=== PATIENT | male | born 1940 | race Caucasian/White ===

== ENCOUNTER 2021-06-18 16:15 | Emergency (ER) | payer MEDICARE ==
[2021-06-18 16:32] VITALS: BP 151/79; PULSE 82
[2021-06-18] MEDS ORDERED: Bacitracin Oint 1 GM U/D Packet TOP ONE (16:47)
--- NOTE | 2021-06-18 16:49 | EDM.PDOC ---
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 Time Seen by Provider: 06/18/21 16:47 Source of Information: Reports: Patient, Family History Limitations: Reports: No Limitations - History of Present Illness INITIAL COMMENTS - FREE TEXT/NARRATIVE: pt caught his rt hand in a plainer Onset: Today, Sudden Duration: Hour(s): Location: Reports: Upper Extremity, Right Associated Symptoms: Reports: No Other Symptoms Right Finger-Ring Pain Score (Numeric/FACES): 5 - Related Data Allergies Allergy/AdvReac Type Severity Reaction Status Date / Time Sulfa (Sulfonamide Allergy Hives Verified 06/18/21 16:34 Antibiotics) Home Meds: Home Meds Albuterol [IMW: Ventolin HFA] 2 puff INH Q4H PRN 04/05/16 [History] Ascorbate Calcium [Vitamin C] 500 mg PO DAILY 04/05/16 [History] Cholecalciferol (Vitamin D3) [Vitamin D3] 1,000 unit PO BID 04/05/16 [History] Cyanocobalamin (Vitamin B-12) [Vitamin B-12] 2,000 mcg PO DAILY 04/05/16 [History] Omeprazole 20 mg PO BID 04/05/16 [History] Prasterone (DHEA) [Dhea] 25 mg PO DAILY 04/05/16 [History] Rivaroxaban [Xarelto] 20 mg PO DAILY 04/05/16 [History] Rosuvastatin [Crestor] 20 mg PO DAILY 04/05/16 [History] metFORMIN [Glucophage] 500 mg PO BID 04/05/16 [History] traMADol [Ultram] 50 mg PO TID PRN 04/05/16 [History] Alogliptin Benzoate [Alogliptin] 12.5 mg PO DAILY 06/18/21 [History] Betamethasone/Propylene Glyc [Betamethasone DP Aug 0.05%] 1 dose TP ASDIRECTED PRN 06/18/21 [History] Fluticasone Propion/Salmeterol [Advair 250-50 Diskus] 1 each IH BID 06/18/21 [History] Lidocaine 5% [Lidoderm 5%] 1 patch TOP DAILY 06/18/21 [History] cloNIDine [Catapres] 0.1 mg PO DAILY 06/18/21 [History] hydrALAZINE [Apresoline] 50 mg PO TID 06/18/21 [History] lisinopriL [Lisinopril] 20 mg PO BID 06/18/21 [History] minoxidiL [Minoxidil] 2.5 mg PO BID 06/18/21 [History] Past Medical History Cardiovascular History: Reports: Afib, Arrhythmia, Blood Clots/VTE/DVT, Hypertension Respiratory History: Reports: PE Genitourinary History: Reports: Prostate Disorder Musculoskeletal History: Reports: Back Pain, Chronic Endocrine/Metabolic History: Reports: Diabetes, Type II Oncologic (Cancer) History: Reports: Basal Cell Carcinoma - Past Surgical History HEENT Surgical History: Reports: Naso-Sinus Surgery, Tonsillectomy, Other (See Below) Cardiovascular Surgical History: Reports: Other (See Below) GI Surgical History: Reports: Hernia, Inguinal Male Surgical History: Reports: TURP-Transurethral Resection of Prostate, Vasectomy Musculoskeletal Surgical History: Reports: Carpal Tunnel, Shoulder Surgery, Other (See Below) Social & Family History - Tobacco Use Tobacco Use Status *Q: Never Tobacco User ED ROS GENERAL - Review of Systems Review Of Systems: See Below Constitutional: Reports: No Symptoms HEENT: Reports: No Symptoms Respiratory: Reports: No Symptoms Cardiovascular: Reports: No Symptoms Endocrine: Reports: No Symptoms GI/Abdominal: Reports: No Symptoms : Reports: No Symptoms Musculoskeletal: Reports: Other (pt has a laceration on the yanez aspect of the middle finger) Skin: Reports: No Symptoms ED EXAM, SKIN/RASH Exam: See Below Text/Narrative:: pt caught his hand in the planer--rt. He has a laceration of the middle finger on the yanez aspect. He has an abrasion on he yanez aspect of the ring finger. The laceration on the middle finger- is 12 inch and just below that is a 1/4 inch laceration. Exam Limited By: No Limitations Extremities: Other ( 2 lacerations on the yanez aspect of the tip of the middle finger. One is 1/4 inch in length and the othr is 1/2 inch in lenghth. The area was cleansed well and infiltrated with lidocaine. ) Course - Vital Signs Last Recorded V/S: Last Vital Signs Temp 36.2 C 06/18/21 16:33 Pulse 82 06/18/21 16:33 Resp 16 06/18/21 16:33 BP 151/79 H 06/18/21 16:33 Pulse Ox 96 06/18/21 16:33 - Orders/Labs/Meds Meds: Medications Discontinued Medications Generic Name Dose Route Start Last Admin Trade Name Eran PRN Reason Stop Dose Admin Bacitracin 1 dose 06/18/21 16:47 06/18/21 16:51 Bacitracin Oint 1 Gm U/D Packet TOP 06/18/21 16:48 1 dose ONETIME ONE Administration Lidocaine HCl 5 ml 06/18/21 16:47 06/18/21 16:51 Lidocaine 1% 5 Ml Sdv INJECT 06/18/21 16:48 5 ml ONETIME ONE Administration - Re-Assessments/Exams Free Text/Narrative Re-Assessment/Exam: 06/18/21 17:28 after it was infiltrated with lidocaine it was closed with 5-0 chromic and 5-0 prolene. The upper laceration was seperated and the subq was pulled toghether with chromic. bacatracin was applied and a pressure dressing was applied. Departure - Departure Time of Disposition: 17:29 Disposition: Home, Self-Care 01 Condition: Fair Clinical Impression: Laceration - Discharge Information Referrals: Magno Cohen MD [Primary Care Provider] - Forms: ED Department Discharge Care Plan Goals: keep dry, no furher ointments, suture removal in 7-8 days, keep covered with a dry dressing. Sepsis Event Note (ED) - Focused Exam Vital Signs: Vital Signs Temp Pulse Resp BP Pulse Ox 06/18/21 16:33 36.2 C 82 16 151/79 H 96 06/18/21 16:31 36.2 C 82 16 151/79 H 96
== END 2021-06-18 17:43 | disposition home or self-care (01) ==
LOC: JP.ED 16:15
DX: S61.212A Laceration without foreign body of right middle finger without damage to nail, initial encounter (principal); I48.91 Unspecified atrial fibrillation; I10 Essential (primary) hypertension; E11.9 Type 2 diabetes mellitus without complications; Z79.01 Long term (current) use of anticoagulants; Z79.899 Other long term (current) drug therapy; Z88.2 Allergy status to sulfonamides; Z86.718 Personal history of other venous thrombosis and embolism; Z79.84 Long term (current) use of oral hypoglycemic drugs; W26.8XXA Contact with other sharp object(s), not elsewhere classified, initial encounter
CPT/HCPCS: 12001; 99282-25

== ENCOUNTER 2023-02-21 08:13 | Emergency (ER) | payer MEDICARE ==
[2023-02-21 09:56] LABS: BASOPHILS ABSOLUTE AUTO 0.05 K/uL (0.00-0.10); BASOPHILS PERCENT AUTO 0.6 % (0.1-1.3); EOSINOPHILS ABSOLUTE AUTO 0.32 K/uL (0.00-0.40); EOSINOPHILS PERCENT AUTO 3.8 % (0.0-5.4); HEMATOCRIT 39.2 % (38.4-49.7); HEMOGLOBIN 12.8 g/dL (12.9-16.9); IMMATURE GRAN ABSOLUTE AUTO 0.03 K/uL (0.00-0.23); IMMATURE GRAN PERCENT AUTO 0.4 % (0.0-0.7); LYMPHOCYTES ABSOLUTE AUTO 1.06 K/uL (0.8-3.3); LYMPHOCYTES PERCENT AUTO 12.6 % (11.4-47.7); MEAN CORPUSCULAR HEMOGLOBIN 28.3 pg (31.6-35.5); MEAN CORPUSCULAR HGB CONC 32.7 g/dL (31.6-35.5); MEAN CORPUSCULAR VOLUME 86.5 fL (81.4-99.0); MONOCYTES ABSOLUTE AUTO 0.73 K/uL (0.20-0.90); MONOCYTES PERCENT AUTO 8.7 % (3.3-12.6); NEUTROPHILS ABSOLUTE AUTO 6.22 K/uL (1.0-7.6); NEUTROPHILS PERCENT AUTO 73.9 % (40.0-78.1); PLATELET COUNT,PLT 143 K/uL (130-375); RED BLOOD CELL COUNT 4.53 M/uL (4.14-5.76); WHITE BLOOD CELL COUNT,WBC 8.4 K/uL (3.2-11.0)
[2023-02-21 10:22] LABS: CALCIUM 8.9 mg/dL (8.5-10.1); CREATININE 1.1 mg/dL (0.8-1.3); EST CRCL DRUG DOSING (CG) 56.09 mL/min; TROPONIN I HIGH SENSITIVITY 14.9 pg/mL (<=60.3)
[2023-02-21 14:00] VITALS: BP 159/82; PULSE 66
== END 2023-02-21 15:05 | disposition home or self-care (01) ==
LOC: JP.ED 08:13
DX: R06.02 Shortness of breath (principal); R79.1 Abnormal coagulation profile; I48.91 Unspecified atrial fibrillation; I10 Essential (primary) hypertension; E11.9 Type 2 diabetes mellitus without complications; Z86.711 Personal history of pulmonary embolism; Z88.2 Allergy status to sulfonamides; Z79.899 Other long term (current) drug therapy; Z79.01 Long term (current) use of anticoagulants; Z79.84 Long term (current) use of oral hypoglycemic drugs; Z95.2 Presence of prosthetic heart valve
CPT/HCPCS: 36415; 71045; 80048; 83880; 84484; 85025; 85379; 93005; 99284